=== PATIENT | female | born 1930 | race Caucasian/White ===

== ENCOUNTER → 2016-09-12 | Outpatient (CLI) | payer OTHER ==
--- NOTE | 2016-09-12 15:52 | DX ---
DEXA Bone Mineral Densitometry Clinical Indications: Current pathological fracture, postmenopausal, family history of osteoporosis, fracture of the spine, Fosamax in the past, Prolia x3 years Comparison: July 11, 2014 Technique: Bone Mineral Densitometry (BMD) by Dual Energy X-Ray Absorptiometry (DEXA) was performed utilizing the [employer] scanner. The lumbar spine was evaluated in the AP projection. The bilat eral hips and forearm were evaluated in the AP projection. Vertebral fracture assessment was also pe rformed. AP Lumbar Spine: The L3 and L4 vertebral bodies were evaluated. L1 and L2 are excluded due to comp ression abnormalities. BMD: 1.019 gm/cm2 T-score: -1.6 SD Z-score: 1.0 SD Significantly increased L3 and L4 by 6.7% AP Left Hip: Total BMD: 0.854 gm/cm2 T-score: -1.2 SD Z-score: 1.7 SD Significantly increased by 13.4%. AP Right Hip: Neck BMD: 0.709 gm/cm2 T-score: -2.4 SD Z-score: 0.5 SD No significant change in total BMD AP Left Forearm, 08/30: BMD: 0.573 gm/cm2 T-score: -3.5 SD Z-score: 0 SD No significant change Vertebral Fracture Assessment: No significant change in a compression abnormality of T10, L1, L2 and L3. No new compressions have developed. Atherosclerotic calcification of the abdominal aorta likely increases lumbar BMD. Conclusion: Considering the lowest measured site, the patient remains osteoporotic and at increased risk for additional fractures. Prolia therapy should be continued, as clinically directed.. The ten year FRAX risk for any major osteoporotic fracture , which excludes the risk for a wrist frac ture, is 17.3% and for a hip fracture is 6.1%. Since the forearm is the lowest measured site, it would be worthwhile to exclude hyperparathyroidism. To prevent osteoporosis and to promote the patient's bone density, the following recommendations shou ld be considered: 1. Pursue a regular regimen of weightbearing and muscle strengthening exercises in order to reduce t he risk of falls and fractures (as tolerated by the patient's general medical condition). 2. Ensure that daily dietary calcium uptake is maximized. 3. Consider checking the serum vitamin D level. Ensure that intake of vitamin D is 800 IU per day ( for ages 71 and older). 4. Consider follow-up DEXA scan in one year to assess the efficacy of pharmacologic intervention.
== END ==
LOC: FIMAGING 12:56
PROVIDERS: ATTEND Internal Medicine Rheumatology
DX: Z13.820 Encounter for screening for osteoporosis (principal); M81.0 Age-related osteoporosis without current pathological fracture; Z78.0 Asymptomatic menopausal state; Z82.62 Family history of osteoporosis

== ENCOUNTER → 2016-11-01 | Outpatient (CLI) | payer OTHER | LOC: FIMAGING 09:20 | PROVIDERS: ATTEND Urology | DX: Z87.442 Personal history of urinary calculi (principal); K59.00 Constipation, unspecified ==